=== PATIENT | male | born 1960 | race Caucasian/White ===

== ENCOUNTER 2016-05-18 11:11 | Emergency (ER) | payer OTHER ==
[~2016-05-18] VITALS: Ht 177.8 cm; Wt 88.5 kg
[2016-05-18] MEDS ORDERED: ATENOLOL-CHLOR1 EAC1 PO (12:01)
[2016-05-18] MEDS ORDERED: AMLODIPINE-OLM1 EAC2 (12:01)
[2016-05-18] MEDS ORDERED: ALLOPURINOL100 M1 PO (12:02)
[2016-05-18] MEDS ORDERED: LISINOPRIL10 M1 PO (12:02)
[2016-05-18] MEDS ORDERED: CARDURA2 M1 PO (12:03)
--- NOTE | 2016-05-18 12:53 | ED UPPER/LOWER EXTREMITY COMPL ---
History of Present Illness General Chief Complaint: Hand or Wrist Injury Stated Complaint: PT CUT HIS FINGER TIP ON THE LEFT HAND Source: patient Exam Limitations: no limitations Vital Signs & Intake/Output Vital Signs & Intake/Output Vital Signs Date Time Temp Pulse Resp B/P Pulse O2 O2 Flow FiO2 Ox Delivery Rate 05/18 1357 96.0 53 16 136/82 95 Room Air 05/18 1326 97.2 05/18 1203 97.2 61 16 145/87 97 Room Air Allergies Coded Allergies: amoxicillin (Severe, ANAPHYLAXSIS 05/18/16) Uncoded Allergies: PCN (Severe, ANAPHYLAXSIS 05/18/16) Reconcile Medications Allopurinol 100 MG TABLET 1 TAB PO DAILY GOUT (Reported) Amlodipine Bes/Olmesartan Med (Amlodipine-Olmesartan 5-40 MG) 5 MG-40 MG TABLET 5 MG HTN (Reported) Atenolol/Chlorthalidone (Atenolol-Chlorthalidone 50-25) 50 MG-25 MG TABLET 1 TAB PO DAILY HTN (Reported) Doxazosin Mesylate (Cardura) 2 MG TABLET 1 TAB PO QPM HTN (Reported) Lisinopril 10 MG TABLET 1 TAB PO DAILY HTN (Reported) Triage Note: CUT LEFT FOREFINGER ON CERAMIC KNIFE AT HOME. (1/4 INCH). TETAUS UP TO DATE. Triage Nurses Notes Reviewed? 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 Tetanus is up-to-date. No medications prior to arrival. Patient is right arm dominant (HARINDER LEE) Past History Travel History Traveled to [place] past 21 day No Medical History Any Pertinent Medical History? see below for history Cardiovascular: hypertension Influenza Vaccine: 12/08/15 Surgical History Surgical History: non-contributory Psychosocial History What is your primary language Thai Tobacco Use: Never used ETOH Use: occasional use Family History Hx Contributory? No (HARINDER LEE) Review of Systems Review of Systems Constitutional: Reports: no symptoms. EENTM: Reports: no symptoms. Respiratory: Reports: no symptoms. Cardiovascular: Reports: no symptoms. Gastrointestinal/Abdominal: Reports: no symptoms. Genitourinary: Reports: no symptoms. Musculoskeletal: Reports: see HPI. Skin: Reports: see HPI. Neurological/Psychological: Reports: no symptoms. Hematologic/Endocrine: Reports: see HPI, bleeding. Immunological: Reports: no symptoms. All Other Systems: Reviewed and Negative (HARINDER LEE) Physical Exam Physical Exam General Appearance: no apparent distress, alert Neurologic/Tendon: normal sensation, normal motor functions, normal tendon functions, responds to pain, no evidence tendon injury, no pulse deficit Skin: normal color, warm/dry Comments: Well-developed well-nourished no apparent distress. HEENT: Atraumatic, extraocular motion intact Neck: Supple, no lymphadenopathy Back: Nontender Respiratory: No respiratory distress Extremities: No edema, full range of motion Neuro: Alert and oriented x3 Psych: Mood affect normal, normal memory normal judgment. Diagram Hands Front 1) 2 cm subcutaneous flap laceration noted with no exposed bone no exposed tendon. Full active range of motion noted with flexion and extension full resisted range of motion noted with flexion and extension no tendon deficit Active bleeding noted (HARINDER LEE) Progress Differential Diagnosis: arterial insufficiency, compartment syndrome, contusion, dislocation, DVT, fracture, gout, septic arthritis, sprain, tendon injury Plan of Care: Current Medications Sig/Sherice Start time Last Medication Dose Stop Time Status Admin Ibuprofen 600 MG ONCE ONE 05/18 1300 UNVr (Motrin) 05/18 1301 Lidocaine 20 ML ONCE ONE 05/18 1300 UNVr (Lidocaine 1%) 05/18 1301 Margins were revised with suture placement patient tolerated well bacitracin bandage was applied. No signs of tendon deficit Tetanus was updated (HARINDER LEE) Departure Departure Disposition: HOME OR SELF CARE Condition: Stable Clinical Impression Primary Impression: Finger laceration Referrals: HENRY KATZ,FERNANDA Griffith (PCP/Family) Additional Instructions: As discussed begin to apply bacitracin to the area once a day and keep covered for the following 4 days. Then leave open to improve healing. If you note signs of infection redness, pain, swelling, discharge return to emergency room. Begin [id number] ibuprofen for pain and inflammation. Return to emergency room in 7 days for suture removal. Keep area dry and clean as you can Departure Forms: Customer Survey General Discharge Information (HARINDER LEE) PA/TEMPLE MARKER Co-Sign Statement Statement: ED Attending supervision documentation- [] I saw and evaluated the patient. I have also reviewed all the pertinent lab results and diagnostic results. I agree with the findings and the plan of care as documented in the PA's/TEMPLE MARKER's documentation. [X] I have reviewed the ED Record and agree with the PA's/TEMPLE MARKER's documentation. [] Additions or exceptions (if any) to the PAs/TEMPLE MARKER's note and plan are summarized below: [] (MAN KATZ,AUGUSTO) Procedures Laceration/Wound Repair Laceration/Wound Repair: Wound Location: upper extremity (LEFT SECOND DIGIT HAND) Wound's Depth, Shape: subcutaneous Wound Length (cm): 2 Wound Explored: clean, no foreign body removed, irrigated extensively Irrigated w/ Saline (ccs): 500 Betadine Prep? Yes Anesthesia: 1% lidocaine Volume Anesthetic (ccs): 4 Wound Repaired With: sutures Suture Size/Type: 5:0 Number of Sutures: 7 Layer Closure? No (HARINDER LEE)
[2016-05-18 13:57] VITALS: BP 136/82
== END 2016-05-18 13:58 ==
LOC: ERH 11:11
DX: S61.211A Laceration without foreign body of left index finger without damage to nail, initial encounter (principal); W26.0XXA Contact with knife, initial encounter